=== PATIENT | male | born 1950 | race Caucasian/White ===

== ENCOUNTER 2021-12-21 09:01 | Day surgery (SDC) | payer MEDICARE, MEDICAID ==
[2021-12-21] MEDS ORDERED: Propofol 200 MG/20 ML SDV IV ONE (09:02)
[2021-12-21] MEDS ORDERED: Midazolam 1 MG/ML 2 ML SDV IV ONE (09:02)
[2021-12-21] MEDS ORDERED: Lactated Ringers 1,000 ML IV SCH (09:15)
[2021-12-21] MEDS ORDERED: Sodium Chloride 0.9% 10 ML Syringe FLUSH PRN (09:15)
== END 2021-12-21 12:36 | disposition home or self-care (01) ==
LOC: FB.SDS 09:01
PROVIDERS: ATTEND Surgery
DX: K62.1 Rectal polyp (principal); K57.30 Diverticulosis of large intestine without perforation or abscess without bleeding; K55.20 Angiodysplasia of colon without hemorrhage; K63.5 Polyp of colon; J44.9 Chronic obstructive pulmonary disease, unspecified; G47.30 Sleep apnea, unspecified; K42.9 Umbilical hernia without obstruction or gangrene; E78.5 Hyperlipidemia, unspecified; I10 Essential (primary) hypertension; I25.2 Old myocardial infarction; Z98.890 Other specified postprocedural states; Z87.891 Personal history of nicotine dependence; Z79.899 Other long term (current) drug therapy; Z79.82 Long term (current) use of aspirin
CPT/HCPCS: 45382; 45384; 45385; 88305; J2250; J2704; J7120; 00812-QZ

== ENCOUNTER 2022-03-10 20:43 | Emergency (ER) | payer MEDICARE, MEDICAID | END 2022-03-10 21:30 | disposition home or self-care (01) | LOC: FB.ED 20:43 | DX: R04.2 Hemoptysis (principal); I10 Essential (primary) hypertension; I25.2 Old myocardial infarction; J44.9 Chronic obstructive pulmonary disease, unspecified; E78.00 Pure hypercholesterolemia, unspecified; Z79.899 Other long term (current) drug therapy | CPT/HCPCS: 99283 ==

== ENCOUNTER 2022-04-16 11:58 | Inpatient (IN) | payer MEDICARE, MEDICAID ==
[2022-04-16 12:52] LABS: ESTIMATED GFR 58 mL/min (>60)
[2022-04-16 14:09] LABS: CORONAVIRUS COVID-19 NAA NEGATIVE (NEGATIVE)
[2022-04-16] MEDS: Cefepime 2 GM Vial IVPUSH SCH (16:38)
[2022-04-16 18:04] VITALS: BP 103/58; PULSE 83
[2022-04-16] MEDS ORDERED: Acetaminophen 325 MG Tab ONE (20:38)
[2022-04-16] MEDS ORDERED: Enoxaparin 40 MG/0.4 ML Syringe ONE (20:39)
[2022-04-16] MEDS ORDERED: Ibuprofen 400 MG Tab ONE (22:51)
[2022-04-17 07:13] LABS: ESTIMATED GFR 58 mL/min (>60)
[2022-04-17] MEDS ORDERED: Ibuprofen 400 MG Tab PO PRN (08:09)
[2022-04-17] MEDS ORDERED: Albuterol/Ipratropium 3.0-0.5 MG/3 ML Neb Soln INH PRN (09:50)
[2022-04-17] MEDS ORDERED: Docusate Sodium 100 MG Cap PO PRN (09:51)
[2022-04-17] MEDS ORDERED: Lisinopril 2.5 MG Tab PO SCH (10:00)
[2022-04-17] MEDS ORDERED: Carvedilol 25 MG Tab PO SCH (10:00)
[2022-04-17] MEDS ORDERED: methylPREDNISolone Sodium Succinate 125 MG/2 ML SDV IVPUSH SCH (10:00)
[2022-04-17] MEDS ORDERED: Azithromycin 500 MG in Sodium Chloride 0.9% 250 ML IV SCH (11:00)
[2022-04-17] MEDS ORDERED: Albuterol/Ipratropium 3.0-0.5 MG/3 ML Neb Soln INH SCH (11:00)
[2022-04-17] MEDS ORDERED: Doxycycline 100 MG Tab PO SCH (12:00)
[2022-04-17] MEDS ORDERED: atorvaSTATin 40 MG Tab PO SCH (21:00)
[2022-04-17] MEDS ORDERED: Enoxaparin 40 MG/0.4 ML Syringe SUBCUT SCH (21:00)
[2022-04-17] MEDS ORDERED: Acetaminophen 500 MG Tab PO PRN (22:20)
[2022-04-18 06:34] LABS: ESTIMATED GFR 64 mL/min (>60)
[2022-04-18] MEDS ORDERED: Iopamidol 755 Mg/ML 75 ML Bottle IV ONE (10:21)
[2022-04-19 06:39] LABS: ESTIMATED GFR 64 mL/min (>60)
== END 2022-04-19 13:40 | disposition home or self-care (01) | DRG 194 ==
LOC: FB.ED 11:58 → FB.MS 16:57 → FB.ZCENSUS 04-17 11:31
PROVIDERS: ADMIT Student in an Organized Health Care Education/Training Program; ATTEND Family Medicine
DX: J18.9 Pneumonia, unspecified organism (principal); C34.90 Malignant neoplasm of unspecified part of unspecified bronchus or lung; J44.0 Chronic obstructive pulmonary disease with (acute) lower respiratory infection; J44.1 Chronic obstructive pulmonary disease with (acute) exacerbation; D70.9 Neutropenia, unspecified; T45.1X5A Adverse effect of antineoplastic and immunosuppressive drugs, initial encounter; Z79.899 Other long term (current) drug therapy; E78.00 Pure hypercholesterolemia, unspecified; E78.5 Hyperlipidemia, unspecified; G47.33 Obstructive sleep apnea (adult) (pediatric); Z85.118 Personal history of other malignant neoplasm of bronchus and lung; I25.2 Old myocardial infarction; G47.30 Sleep apnea, unspecified; I10 Essential (primary) hypertension; Z85.828 Personal history of other malignant neoplasm of skin; Z20.822 Contact with and (suspected) exposure to COVID-19
CPT/HCPCS: 0241U; 36415; 71046; 71260; 80048; 80053; 83605; 83880; 85025; 87040; 87070; 87205; 96374; 99222; 99232; 99239; 99284-25; J0692

== ENCOUNTER 2022-05-06 15:23 | Emergency (ER) | payer MEDICARE, MEDICAID | END 2022-05-06 15:50 | disposition home or self-care (01) | LOC: FB.ED 15:23 | DX: R04.0 Epistaxis (principal); J44.9 Chronic obstructive pulmonary disease, unspecified; E78.00 Pure hypercholesterolemia, unspecified; I10 Essential (primary) hypertension; Z79.899 Other long term (current) drug therapy | CPT/HCPCS: 30901; 99283 ==